=== PATIENT | female | born 1975 | race African-American/Black ===

== ENCOUNTER → 2018-01-03 07:59 | Outpatient (CLI) | payer BC, SELFPAY ==
--- NOTE | 2018-01-03 08:05 | US_ITS ---
US gallbladder HISTORY: Right upper quadrant pain with nausea and vomiting ITS.REASON: EPIGSTRIC PAIN ORDERING PHYSICIAN: Reed Rojas MD PATIENT AGE: 42 years FINDINGS: PANCREAS: Unremarkable. No obvious mass or abnormal fluid collection. No ductal dilatation LIVER: No focal liver lesions demonstrated. Homogeneous echogenicity. No intrahepatic biliary ductal dilatation evident. The nonspecific small hyperechoic focus in the right hepatic lobe anteriorly at 4 mm RIGHT KIDNEY: Normal size and echogenicity. No hydronephrosis. 1 cm hypoechoic area in the right kidney suggesting a small cyst GALLBLADDER: There are multiple stones in the gallbladder. Common bile duct is normal at 3 mm. No pericholecystic fluid or gallbladder wall thickening. IMPRESSION: 1. Cholelithiasis. 2. Small hyperechoic lesion of the liver nonspecific. 3. Probable small right renal cyst
== END ==
PROVIDERS: Family Provider Family Medicine; PCP Family Medicine; Visit Provider Family Medicine
DX: R10.13 Epigastric pain (principal)
CPT/HCPCS: 76705

== ENCOUNTER → 2018-01-11 10:29 | Outpatient (CLI) | payer BC, SELFPAY ==
[2018-01-11 11:06] LABS: Basophils # 0.1 K/mm3 (0-0.2); Basophils % 0.5 % (0.1-2.0); Eosinophils # 0.3 K/mm3 (0.0-0.4); Eosinophils % 3.3 % (0.1-12.0); Hematocrit 42.3 % (37.0-47.0); Hemoglobin 13.3 g/dL (12.2-16.2); Lymphocytes % 29.6 K/mm3 (10-50); Mean Corpuscular HGB Conc 31.4 g/dL (31.8-35.4); Mean Corpuscular Hemoglobin 27.4 pg (27.0-31.2); Mean Corpuscular Volume 87.5 fl (81-99); Monocytes # 0.4 K/mm3 (0.1-1.0); Monocytes % 3.9 % (1.7-9.3); Neutrophils # 6.4 K/mm3 (1.8-7.8); Neutrophils % 62.7 % (37.0-80.0); Platelet Count 384 K/mm3 (142-424); Red Blood Count 4.84 M/mm3 (4.20-5.40); Red Cell Distribution Width 15.1 % (11.5-17.5); White Blood Count 10.2 K/mm3 (4.8-10.8)
[2018-01-11 12:02] LABS: HCG Qualitative, Serum Negative (Negative)
[2018-01-11 12:05] LABS: Alanine Aminotransferase 32 U/L (12-78); Albumin Level 3.7 gm/dL (3.4-5.0); Albumin/Globulin Ratio 0.9 (1.1-1.8); Alkaline Phosphatase 98 U/L (46-116); Anion Gap 13.6 mEq/L (5-15); Aspartate Amino Transferase 22 U/L (15-37); Bilirubin,Total 0.4 mg/dL (0.2-1.0); Blood Urea Nitrogen 10 mg/dL (7-18); Calcium 9.2 mg/dL (8.5-10.1); Carbon Dioxide 27 mmol/L (21.0-32.0); Chloride 103 mmol/L (98-107); Creatinine,Serum 0.76 mg/dL (0.55-1.02); Estimated Glomerular Filt Rate 81 ml/min (>60); GFR (African American) 98 ML/MIN (>60); Globulin 4.3 gm/dl (1.3-3.2); Glucose 83 mg/dL (74-106); Potassium 4.6 mmoL/L (3.5-5.1); Sodium 139 mmol/L (136-145)
== END ==
PROVIDERS: Visit Provider Surgery
DX: Z01.818 Encounter for other preprocedural examination (principal); K80.12 Calculus of gallbladder with acute and chronic cholecystitis without obstruction
CPT/HCPCS: 36415; 80053; 84703; 85025

== ENCOUNTER → 2019-05-03 10:35 | Outpatient (CLI) | payer BC, SELFPAY ==
--- NOTE | 2019-05-03 10:38 | US_ITS ---
PROCEDURE: US TRANSVAGINAL CLINICAL INDICATION: US T/V- Abnormal Bleeding Heavy uterine bleeding, dysfunctional uterine bleeding COMPARISON: ABDPELW CT ABD PELVIS W/ CONTRAST from 07/30/2017 FINDINGS: The uterus is 12 x 7 x 7 cm with a combined endometrial thickness of 6 mm. The uterus is enlarged with heterogeneous echogenicity. There is a 6 x 4 cm fibroid along the anterior aspect of the uterine body. A 5 x 4 cm fibroid also noted anteriorly. Nabothian cysts are noted. No adnexal mass or cul-de-sac fluid. IMPRESSION: Enlarged uterus with uterine fibroids Dictated by: El Rico MD 05/03/2019 18:33 Signed by: <Electronically signed by El Rico MD in [place]> 05/03/2019 18:33
== END ==
PROVIDERS: PCP Family Medicine; Visit Provider Nurse Practitioner Obstetrics & Gynecology
DX: N92.6 Irregular menstruation, unspecified (principal)
CPT/HCPCS: 76830

== ENCOUNTER → 2019-05-17 09:41 | Outpatient (CLI) | payer BC, SELFPAY ==
[2019-05-17 09:58] LABS: Basophils # 0.1 K/mm3 (0-0.2); Basophils % 0.5 % (0.1-2.0); Eosinophils # 0.4 K/mm3 (0.0-0.4); Eosinophils % 3.9 % (0.1-12.0); Hematocrit 33.9 % (37.0-47.0); Hemoglobin 10.3 g/dL (12.2-16.2); Lymphocytes # 3.2 K/mm3 (0.7-4.5); Lymphocytes % 36.1 % (10-50); Mean Corpuscular HGB Conc 30.2 g/dL (31.8-35.4); Mean Corpuscular Hemoglobin 23.4 pg (27.0-31.2); Mean Corpuscular Volume 77.4 fl (81-99); Mean Platelet Volume 6.5 fl (7.4-10.4); Monocytes # 0.4 K/mm3 (0.1-1.0); Monocytes % 4.9 % (1.7-9.3); Neutrophils # 4.9 K/mm3 (1.8-7.8); Neutrophils % 54.6 % (37.0-80.0); Platelet Count 479 K/mm3 (142-424); Red Blood Count 4.38 M/mm3 (4.20-5.40); Red Cell Distribution Width 16.6 % (11.5-17.5)
[2019-05-17 11:27] LABS: Alanine Aminotransferase 20 U/L (12-78); Albumin Level 3.4 gm/dL (3.4-5.0); Albumin/Globulin Ratio 0.9 (1.1-1.8); Alkaline Phosphatase 68 U/L (46-116); Anion Gap 9.3 mEq/L (5-15); Aspartate Amino Transferase 17 U/L (15-37); Bilirubin,Total 0.3 mg/dL (0.2-1.0); Blood Urea Nitrogen 10 mg/dL (7-18); Calcium 8.9 mg/dL (8.5-10.1); Carbon Dioxide 29 mmol/L (21.0-32.0); Chloride 103 mmol/L (98-107); Chol/HDL Ratio 2.5 (1-3.5); Cholesterol 162 mg/dL (140-200); Creatinine,Serum 0.86 mg/dL (0.55-1.02); Estimated Glomerular Filt Rate 72 ml/min (>60); GFR (African American) 87 ML/MIN (>60); Globulin 3.8 gm/dl (1.3-3.2); Glucose 78 mg/dL (74-106); HDL Cholesterol 65 mg/dL (29-89); LDL Cholesterol 85 mg/dL (0-130); Potassium 4.3 mmoL/L (3.5-5.1); Sodium 137 mmol/L (136-145); Total Protein,Serum 7.2 gm/dL (6.4-8.2); Triglycerides 62 mg/dL (30-200); VLDL Cholesterol 12 mg/dL (0-40)
== END ==
PROVIDERS: Visit Provider Nurse Practitioner Obstetrics & Gynecology
DX: Z01.818 Encounter for other preprocedural examination (principal); N93.9 Abnormal uterine and vaginal bleeding, unspecified; D25.1 Intramural leiomyoma of uterus; N92.1 Excessive and frequent menstruation with irregular cycle
CPT/HCPCS: 36415; 80053; 80061; 85025

== ENCOUNTER 2019-06-15 06:04 | Inpatient (IN) ==
--- NOTE | 2019-06-15 09:53 | Operative Note ---
Date of procedure: 06/15/19 Pre-op Diagnosis:: Menorrhagia, fibroid uterus, anemia Post-op Diagnosis:: Menorrhagia, fibroid uterus, anemia Procedure performed:: Diagnostic laparoscopy, conversion to midline laparotomy, total abdominal hysterectomy, bilateral salpingectomy, lysis of adhesions Surgeon:: Todd Allan MD Clerical Order Filler(s):: Leah Guy PRESIDING JUDGE:: Benny Montanez Anesthesia: GETA Estimated blood loss (mL): 500 Clinical Note:: She is a 43-year-old 2 para 2 lady who was known to have a fibroid uterus. She had an ultrasound that showed a 6 x 4 cm and a 5 x 5 cm fibroid. She is had 2 previous sections as well as laparoscopic cholecystectomy. She was anemic as a result of her heavy periods. After having discussed the risks and benefits of surgery we elected to perform a laparoscopically assisted vaginal hysterectomy and bilateral salpingectomy. Unfortunately once we went into the abdominal cavity is noted that there were extensive adhesions of the uterus to the anterior abdominal wall as well as bowel adhesions to the anterior abdominal wall. As a result of this we elected to perform a midline laparotomy with total abdominal hysterectomy and bilateral salpingectomy. Operative findings:: Upon entering the abdominal cavity with the laparoscope was noted that there was extensive adhesions from the uterus to the anterior abdominal wall and to the anterior bladder. There were adhesions of bowel into the deep left pelvis. The uterus was also pulled up superiorly and was almost to the umbilicus. As result of this we elected perform a total abdominal hysterectomy and bilateral salpingectomy through a midline incision. Operative note:: She was taken the operating room where general anesthesia was found be adequate. She was prepped and draped in a sterile fashion in the semilithotomy position. A weighted speculum is placed in vagina and the anterior lip of the cervix was grasped with a tenaculum. I dilated the cervix to approximately 4 mm and then inserted a HUMI uterine lip later into the uterine cavity. I then changed gloves and went to the laparoscopic portion of the surgery. I injected 10 cc of 0.5% ropivacaine around the umbilicus and made a small incision within the umbilicus. Inserted a Veress needle into the abdominal cavity and insufflated the abdominal cavity to a pressure of 20 mm of mercury. I then inserted an 11 mm trocar under direct vision. The findings were as previously dictated. Since there was such extensive adhesions and the uterus is almost to the umbilicus I elected to perform a midline laparotomy. Patient was reprepped and draped in the normal sterile fashion in the supine po sition. Olmos catheter is in the bladder. A midline incision was made with knife and carried through to the underlying layer of fascia with cautery. The fascia was opened midline with cautery and extended superiorly and inferiorly with cautery. She was quite short from her pubic bone to the umbilicus so I extended the incision just slightly superiorly to the umbilicus and had joined up with the inferior umbilical incision from the laparoscopy. The fascia was extended superiorly and inferiorly and the peritoneum was was already opened where the trocar was located. I was able to put my finger through here and open up the peritoneum from the suprapubic area to the umbilical area. The bowel was clear. There were a couple of adhesions of omentum and I was able to take these down with cautery. An O'Gunnar-O'Edwards retractor was then placed within the abdominal cavity and the bowel was packed with warm moist packs. The bladder was quite adherent anteriorly to the uterus. It was quite enlarged. There were at least 2 fibroids as previously seen on ultrasound that measured approximately 6 cm and 5 cm. I grasped the left round ligament and cut across this with scissors. I then suture-ligated this. I then doubly clamped across the utero-ovarian ligament and this was then cut and doubly suture-ligated. I then clamped across the uterine arteries at the level of the internal loss with curved Kelvin and cut and suture-ligated here. I then opened up the bladder flap completely across to the other round ligament. I then dissected the bladder down with both sharp and blunt dissection. I then took 2 bites of the cardinal ligament on the left side using straight. This was suture-ligated as I went. We then turned our attention to the opposite side. I grasped the right round ligament with a Lillie and then cut across this. It was suture-ligated. I then doubly clamped the utero-ovarian ligament and this was cut and doubly suture- ligated. I then further opened up the bladder anteriorly with both sharp and blunt dissection. Using straight Kelvin clamps I then took down the cardinal ligament on the right side in a [id number] fashion clamping cutting and suture ligating as I went. This was followed by the uterosacral ligament on the right side which was clamped cut and suture-ligated. I then turned my attention to the left side once again I took down the uterosacral ligament which was clamped cut and suture-ligated. This freed up the cervix at the level of the vaginal vault. The cervix was actually quite long. I then clamped across the vaginal vault using curved Kelvin clamps and cut away the cervix from the top of the vagina. The corners of the vagina were then closed with interrupted [id number] Vicryl suture. These were tagged. I then closed the vaginal vault using running lock suture. I then removed her tubes by clamping across the mesosalpinx and cutting away the tube. This was then suture-ligated. This was similar performed on the opposite side. The pedicle of the ovary was then tied to the pedicle of the round ligament on each side. The pelvis then rinsed and once again hemostasis was assured. I elected to place 2 large pieces of Surgicel into the pelvis. The peritoneum was then grasped and closed using running 2-0 Vicryl suture. The fascia was then closed using running #2 Novafil suture. The subcutaneous tissues were then irrigated with warm water and closed using running 2-0 Monocryl suture. The skin was closed with luis. The skin was then cleaned with Hibiclens and a sterile dressing applied. She tolerated procedure well and was taken to recovery room in excellent condition. All sponge, instrument and needle counts were correct. The estimate of blood loss was approximately 500 cc. Condition: stable Disposition: PACU Specimens:: Uterus and fallopian tubes Complications:: None
--- NOTE | 2019-06-15 10:02 | Progress Note ---
[facility] Anesthesia Checklist - Structural Data Admitted From: Home Planned Operative Procedure/s: [facility] Consent for Planned Operative Procedure(s) Verified: Yes - Additional verifications Anesthesia Reactions: No Hx Blood Transfusions: Yes (07/26/1994 x2 units post csetion hemorrhage) Blood Transfusion Reaction: No - Airway Assessment C-Spine Mobility Assessed: Yes TMJ Mobility Assessed: Yes Dentition: Good Dentition - Neurological Assessment Level of Consciousness: Awake, Alert, Appropriate - Anesthesia Plan Anesthesia Risk discussed: Yes Anesthesia Plan: Verified ASA Class: II Anesthesia Type: General [facility] History I have reviewed the patient's past medical history: Yes Medical History: Reports:: Asthma Denies:: Cancer, Diabetes Mellitus Type 1, Diabetes Mellitus Type 2, Internal Pacemaker, MRSA, Seizures *Have you ever received a pneumonia vaccine?: No *Have you received a flu vaccine this season?: No Other Medical History: Denies: Blood Transfusion Reaction Anesthesia experience/problems:: none Other Surgeries: Yes: Cholecystectomy, , Dilation and Curettage, Tubal Ligation, Other (gallbladder). No: Pacemaker Amputation: No Fractures: No - *Social History Educational Level: Attended College Smoking Status: Never smoker Alcohol Intake: current Alcohol Intake Frequency:: holidays/special occasions only Substance Use Type: denies use *Occupational Status:: employed Housing: house Household Members: children, significant other *Travel in the last 8 weeks: None Family Hx:: No significant family history
--- NOTE | 2019-06-15 10:03 | Progress Note ---
[facility] Anesthesia Record Part I Intake, IV Amount: 2,000 Estimated blood loss (mL): 500 Urine output (mL): 350 Blood Pressure: 112/70 SaO2: 100 Pulse Rate: 76 Respiratory Rate: 12 Temperature: 97.4 F Patient is:: Awake, Stable Stable to PACU at:: 10:00
--- NOTE | 2019-06-15 10:04 | Progress Note ---
[facility] Anesthesia Record Part II Discharge Time: 10:30 Destination: floor PACU nurse assessment reviewed?: Yes Patient Condition:: Good Anesthesia Complications:: None Swallowing reflex intact?: Yes Cyanosis?: No
--- NOTE | 2019-06-15 15:05 | Pharmacy Consult Notes ---
[facility] Pharmacy VTE Monitoring - Patient Demographics Admission date: 06/15/19 Report Date: 06/15/19 Time: 15:05 Allergies/Adverse Reactions: Patient Allergies No Known Allergies Allergy (Verified 05/17/19 08:45) Height: 1.55 m Weight: 77.564 kg - VTE Risk Was VTE Risk Assessment Performed: Yes VTE Score: 3 VTE Risk Level: Low Risk - Prophylaxis VTE Prophylaxis Ordered?: Yes Types of VTE Prophylaxis: IPCS Thigh High, Pharmacological Location of Applied Device: Bilateral Lower Extremeties Pharmacologic Type: Enoxaparin
[2019-06-15 16:13] LABS: Hematocrit 27.9 % (37.0-47.0); Hemoglobin 8.2 g/dL (12.2-16.2)
[2019-06-16 07:28] LABS: Anion Gap 11.3 mEq/L (5-15); Calcium 8.2 mg/dL (8.5-10.1)
[2019-06-16 07:39] LABS: Basophils % 0.2 % (0.1-2.0); Eosinophils % 0.1 % (0.1-12.0); Lymphocytes # 2.3 K/mm3 (0.7-4.5); Lymphocytes % 15.8 % (10-50); Mean Corpuscular HGB Conc 28.4 g/dL (31.8-35.4); Mean Corpuscular Volume 77.7 fl (81-99); Mean Platelet Volume 7.4 fl (7.4-10.4); Monocytes % 6.6 % (1.7-9.3); Neutrophils # 11.1 K/mm3 (1.8-7.8); Neutrophils % 77.3 % (37.0-80.0); Platelet Count 375 K/mm3 (142-424); Red Blood Count 2.97 M/mm3 (4.20-5.40); Red Cell Distribution Width 17.6 % (11.5-17.5); White Blood Count 14.4 K/mm3 (4.8-10.8)
[2019-06-16 07:42] LABS: Hematocrit 23.1 % (37.0-47.0); Hemoglobin 6.6 g/dL (12.2-16.2)
--- NOTE | 2019-06-16 11:28 | Progress Note ---
Internal Medicine - PN: Subj *Date: 06/16/19 *Time: 11:24 Interval history: She is doing well this morning. She had dropped her hemoglobin by yesterday afternoon to 8.3. This morning was 6.3. As result of that we are transfusing HER-2 units of blood. Her hemoglobin was only 10.3 prior to surgery. She has had anemia in the past. She denies any shortness of breath, chest pain or calf tenderness. She denies any nausea. She has passed some gas. Exam Vital signs and Labs for Last 24 Hours: Temp Pulse Resp BP Pulse Ox 98.5 F 93 H 20 128/67 97 06/16/19 10:55 06/16/19 10:55 06/16/19 10:55 06/16/19 10:55 06/16/19 10:55 Laboratory Results - last 24 hr 06/15/19 08:05: Urine Color Yellow, Urine Appearance Clear, Urine pH 7.0, Ur Specific [place] 1.020, Urine Protein Trace, Urine Glucose (UA) Negative, Urine Ketones Negative, Urine Blood Negative, Urine Nitrate Negative, Urine Bilirubin Negative, Urine Urobilinogen 0.2, Ur Leukocyte Esterase Negative, Urine WBC Occasional, Ur Squamous Epith Cells 3-5, Urine Bacteria Trace 06/15/19 16:00: Hgb 8.2 L, Hct 27.9 L 06/16/19 06:27: WBC 14.4 H, RBC 2.97 L, Hgb 6.6 L*, Hct 23.1 L*, MCV 77.7 L, MCH 22.1 L, MCHC 28.4 L, RDW 17.6 H, Plt Count 375, MPV 7.4, Neut % (Auto) 77.3, Lymph % (Auto) 15.8, [place] % (Auto) 6.6, Eos % (Auto) 0.1, Baso % (Auto) 0.2, Neut # (Auto) 11.1 H, Lymph # (Auto) 2.3, [place] # (Auto) 1.0, Eos # (Auto) 0.0, Baso # (Auto) 0.0 06/16/19 06:27: Sodium 136, Potassium 4.3, Chloride 103, Carbon Dioxide 26, Anion Gap 11.3, BUN 10, Creatinine 0.94, Estimated Creat Clear 94, Estimated GFR 65, Est GFR ( Amer) 78, Glucose 113 H, Calcium 8.2 L 06/16/19 06:37: Blood Type Confirm O Positive 06/16/19 08:30: Blood Type O Positive, Antibody Screen Negative, Crossmatch (AHG) See Detail I & O for Last 24 hours: Intake & Output 06/13/19 06/14/19 06/15/19 06/16/19 11:59 11:59 11:59 11:59 Intake Total 1999 2465 / 2465 Output Total 900 / 900 Balance 1999 1565 / 1565 Weight 171 lb - Constitutional no acute distress - *Routine HEENT Exam Head: Present: normocephalic Eye: Present: EOMI, PERRL ENT: Present: mucous membranes moist - *Routine Neck Exam Present: supple, full ROM - *Routine Respiratory Exam Absent: accessory muscle use (good air entry bilaterally), wheezes, crackles Comments: She has good air entry bilaterally - *Routine Cardiovascular Exam Present: RRR. Absent: murmur - *Routine Abdominal Exam Present: soft, normoactive bowel sounds. Absent: tenderness, rebound, guarding, mass Comments: Her incision is clean and dry. 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 She is getting 2 units of blood this morning. We will plan to send her home in 48 hours. We will increase her diet. Her Olmos catheter is out.
--- NOTE | 2019-06-16 13:20 | Pharmacy Consult Notes ---
[facility] Pharmacy VTE Monitoring - Patient Demographics Admission date: 06/16/19 Report Date: 06/16/19 Time: 13:19 Allergies/Adverse Reactions: Patient Allergies No Known Allergies Allergy (Verified 05/17/19 08:45) Height: 1.55 m Weight: 77.564 kg Patient Problems: Current Active Problems (This Medical Record has been edited. Action required.) Uterine fibroid (Acute) Anemia due to chronic blood loss (Acute) Menorrhagia (Acute) - VTE Risk Labs: VTE Related Lab Results Hgb 6.6 g/dL (12.2-16.2) L* 06/16/19 06:27 Hct 23.1 % (37.0-47.0) L* 06/16/19 06:27 Plt Count 375 K/mm3 (142-424) 06/16/19 06:27 BUN 10 mg/dL (7-18) 06/16/19 06:27 Creatinine 0.94 mg/dL (0.55-1.02) 06/16/19 06:27 Estimated Creat Clear 94 mL/min (50-200) 06/16/19 06:27 Was VTE Risk Assessment Performed: Yes VTE Score: 3 VTE Risk Level: Low Risk - Prophylaxis Types of VTE Prophylaxis: Pharmacological Location of Applied Device: Bilateral Lower Extremeties Pharmacologic Type: Enoxaparin (LOVENOX ADDED)
[2019-06-16 14:59] LABS: Hematocrit 29.9 % (37.0-47.0)
[2019-06-16 15:03] LABS: Hemoglobin 9.1 g/dL (12.2-16.2)
[2019-06-17 07:51] LABS: Basophils % 0.2 % (0.1-2.0); Eosinophils % 0.1 % (0.1-12.0); Hematocrit 24.9 % (37.0-47.0); Lymphocytes # 2.4 K/mm3 (0.7-4.5); Lymphocytes % 15.6 % (10-50); Mean Corpuscular HGB Conc 30.7 g/dL (31.8-35.4); Mean Corpuscular Volume 81.9 fl (81-99); Mean Platelet Volume 7.3 fl (7.4-10.4); Monocytes # 0.6 K/mm3 (0.1-1.0); Monocytes % 4.1 % (1.7-9.3); Neutrophils # 12.3 K/mm3 (1.8-7.8); Neutrophils % 79.9 % (37.0-80.0); Platelet Count 280 K/mm3 (142-424); Red Blood Count 3.03 M/mm3 (4.20-5.40); Red Cell Distribution Width 18.9 % (11.5-17.5); White Blood Count 15.4 K/mm3 (4.8-10.8)
[2019-06-17 08:56] LABS: Hemoglobin 7.6 g/dL (12.2-16.2)
--- NOTE | 2019-06-17 13:48 | Progress Note ---
Internal Medicine - PN: Subj *Date: 06/17/19 *Time: 13:44 Interval history: She is doing well today. Her hemoglobin has dropped to 7.6. She received 2 units yesterday. We will plan to repeat her hemoglobin again tomorrow morning. She denies any chest pain, shortness of breath or calf tenderness. She is passing gas. She is eating and drinking. Exam Vital signs and Labs for Last 24 Hours: Temp Pulse Resp BP Pulse Ox 98.5 F 97 H 20 118/67 98 06/17/19 08:30 06/17/19 08:30 06/17/19 08:30 06/17/19 08:30 06/17/19 08:30 Laboratory Results - last 24 hr 06/16/19 08:30: Crossmatch (AHG) See Detail 06/16/19 14:35: Hgb 9.1 L D, Hct 29.9 L 06/17/19 07:00: WBC 15.4 H, RBC 3.03 L, Hgb 7.6 L*, Hct 24.9 L, MCV 81.9, MCH 25.2 L, MCHC 30.7 L, RDW 18.9 H, Plt Count 280 D, MPV 7.3 L, Neut % (Auto) 79.9, Lymph % (Auto) 15.6, [place] % (Auto) 4.1, Eos % (Auto) 0.1, Baso % (Auto) 0.2, Neut # (Auto) 12.3 H, Lymph # (Auto) 2.4, [place] # (Auto) 0.6, Eos # (Auto) 0.0, Baso # (Auto) 0.0 I & O for Last 24 hours: Intake & Output 06/15/19 06/16/19 06/17/19 06/18/19 11:59 11:59 11:59 11:59 Intake Total 1999 2465 / 2465 1553 / 1553 Output Total 900 / 900 1000 / 1000 Balance 1999 1565 / 1565 553 / 553 - Constitutional no acute distress - *Routine HEENT Exam Head: Present: normocephalic Eye: Present: EOMI, PERRL ENT: Present: mucous membranes moist - *Routine Neck Exam Present: supple, full ROM - *Routine Respiratory Exam Absent: accessory muscle use (good air entry bilaterally), wheezes, crackles - *Routine Cardiovascular Exam Present: RRR. Absent: murmur - *Routine Abdominal Exam Present: soft, normoactive bowel sounds. Absent: tenderness, rebound, guarding, mass Assessment and Plan (1) Uterine fibroid Current visit: Yes Status: Acute Category: Medical Code(s): D25.9 - Leiomyoma of uterus, unspecified (2) Anemia due to chronic blood loss Current visit: Yes Status: Acute Category: Medical Code(s): D50.0 - Iron deficiency anemia secondary to blood loss (chronic) (3) Menorrhagia Current visit: Yes Status: Acute Category: Medical Code(s): N92.0 - Excessive and frequent menstruation with regular cycle - Assessment and plan all Dx Assessment and Plan for all problems:: She is doing well this morning. Her hemoglobin has gone down slightly and we will repeat again tomorrow. If necessary we will give her more blood products. We will plan to send her home tomorrow but if she is not quite ready we will keep her another day. She really just started eating today. She is ambulating and she has had a shower. She has a slight cough and I have encouraged her to continue with her set of spirometry. She will take a cough syrup as necessary. Her pain is well controlled.
[2019-06-17 13:49] LABS: Lymphocytes % 15 % (10-50); Monocytes % 5 % (2-9); Neutrophils % 80 % (42-76); Total Cells Counted 100
[2019-06-18 07:24] LABS: Hematocrit 24.3 % (37.0-47.0)
[2019-06-18 07:37] LABS: Hemoglobin 7.5 g/dL (12.2-16.2)
--- NOTE | 2019-06-18 08:28 | Discharge Summary ---
General - General Admission date:: 06/15/19 Discharge date: 06/18/19 HPI HPI: She is a 43-year-old lady who has a fibroid uterus as well as menorrhagia and anemia. She came in on June 15 for a laparoscopic-assisted vaginal hysterectomy but unfortunately extensive adhesions of the uterus and the uterus itself was quite enlarged. We elected to perform a laparotomy and performed a total abdominal hysterectomy and bilateral salpingectomy. Hospital Course Hospital Course: On June 15 she underwent a laparotomy through a midline incision and we performed a total abdominal hysterectomy and bilateral salpingectomy. She has done well postoperatively and has remained afebrile throughout her hospitalization. She is eating and drinking and ambulating. She has had a bowel movement. Her pain is well controlled with Toradol. She does not want to take any narcotics. On her first postoperative day it was noted that her hemoglobin was slightly low so we elected to transfuse her 2 units of blood. Her hemoglobin is now 7.5 and it has been stabilized for the last 24 hours. She is discharged home to follow-up with me in approximately 2 weeks time. She will continue with her home medications. She was given a prescription for Percocet 5/325 number 20 tablets. She will continue with ibuprofen. She was given the usual instructions with respect to limiting her activity, driving and sexual activity. She will also take a One-A-Day vitamin with iron as well as an extra iron tablet to build up her blood counts. Her condition on discharge is stable and improved. Objective Vital signs: Temp Pulse Resp BP Pulse Ox 98.3 F 83 20 122/75 98 06/18/19 04:26 06/18/19 04:26 06/18/19 04:26 06/18/19 04:06/18/19 08:09 no acute distress - *Routine HEENT Exam Head: Present: normocephalic - *Routine Respiratory Exam Absent: accessory muscle use Comments: She has good air entry bilaterally - *Routine Cardiovascular Exam Present: RRR - *Routine Abdominal Exam Present: soft, normoactive bowel sounds, wound Comments: Incision is clean and dry - *Routine Extremities Exam Present: full ROM Comments: She has no calf tenderness Results Labs on day of discharge: Labs from last 24 hours 06/18/19 06/17/19 06:58 07:00 WBC 15.4 H RBC 3.03 L Hgb 7.5 L* 7.6 L* Hct 24.3 L 24.9 L MCV 81.9 MCH 25.2 L MCHC 30.7 L RDW 18.9 H Plt Count 280 D MPV 7.3 L Neut % (Auto) 79.9 Lymph % (Auto) 15.6 [place] % (Auto) 4.1 Eos % (Auto) 0.1 Baso % (Auto) 0.2 Neut # (Auto) 12.3 H Lymph # (Auto) 2.4 [place] # (Auto) 0.6 Eos # (Auto) 0.0 Baso # (Auto) 0.0 Total Counted 100 Neutrophils % (Manual) 80 H Lymphocytes % (Manual) 15 Monocytes % (Manual) 5 Platelet Estimate Normal DS: Diagnosis - Discharge Diagnosis (1) Uterine fibroid Status: Acute (2) Anemia due to chronic blood loss Status: Acute (3) Menorrhagia Status: Acute Discharge Plan - Patient Discharge Instructions ACTIVITY: No heavy lifting DIET: continue same diet - Follow up Plan Disposition: Home, Self-Usp Medications: Home Medications Medication Instructions Recorded Confirmed Type budesonide-formoterol HFA 80 2 puff INHALATION DAILY 01/11/18 06/16/19 History mcg-4.5 mcg/actuation aerosol inhaler albuterol sulfate HFA 90 1 inhalation INHALATION DAILY #18 g 04/26/19 06/15/19 History mcg/actuation aerosol inhaler Oxycodone HCl/Acetaminophen 1 - 2 tab PO Q4-6H PRN #20 tab 06/18/19 Rx [Percocet 5/325mg tablet] Prescriptions/Medication Reconciliation: New Oxycodone HCl/Acetaminophen [Percocet 5/325mg tablet] 1 - 2 tab PO Q4-6H PRN #20 tab PRN Reason: Severe Pain Continued albuterol sulfate HFA 90 mcg/actuation aerosol inhaler 1 inhalation INHALATION DAILY #18 g budesonide-formoterol HFA 80 mcg-4.5 mcg/actuation aerosol inhaler 2 puff INHALATION DAILY - Problem Reconciliation Problems Reviewed?: Yes
== END 2019-06-18 09:40 | disposition home or self-care (01) | DRG 743 ==
LOC: OR 06:04 → OB 10:40
PROVIDERS: ADMIT Nurse Practitioner Obstetrics & Gynecology; ATTEND Nurse Practitioner Obstetrics & Gynecology
CPT/HCPCS: 36415; 80048; 81001; 81025; 85007; 85014; 85018; 85025; 86850; 96372; 96374; J0131; J2405; J2710; P9016

== ENCOUNTER → 2019-06-27 11:26 | Outpatient (CLI) | payer BC, SELFPAY ==
[2019-06-27 11:37] LABS: Basophils # 0.1 K/mm3 (0-0.2); Basophils % 0.4 % (0.1-2.0); Eosinophils # 0.4 K/mm3 (0.0-0.4); Eosinophils % 1.3 % (0.1-12.0); Hematocrit 31.9 % (37.0-47.0); Hemoglobin 9.2 g/dL (12.2-16.2); Lymphocytes # 3.3 K/mm3 (0.7-4.5); Lymphocytes % 10.7 % (10-50); Mean Corpuscular HGB Conc 28.9 g/dL (31.8-35.4); Mean Corpuscular Hemoglobin 24.2 pg (27.0-31.2); Mean Corpuscular Volume 83.8 fl (81-99); Mean Platelet Volume 7.1 fl (7.4-10.4); Monocytes # 1.4 K/mm3 (0.1-1.0); Monocytes % 4.6 % (1.7-9.3); Neutrophils # 25.3 K/mm3 (1.8-7.8); Neutrophils % 82.9 % (37.0-80.0); Platelet Count 966 K/mm3 (142-424); Red Blood Count 3.81 M/mm3 (4.20-5.40); Red Cell Distribution Width 20.4 % (11.5-17.5); White Blood Count 30.5 K/mm3 (4.8-10.8)
[2019-06-27 11:43] LABS: MANUAL DIFFERENTIAL MANUAL DIFFERENTIAL (MANUAL DIFF)
[2019-06-27 15:08] LABS: Lymphocytes % 24 % (10-50); Monocytes % 1 % (2-9); Neutrophils % 75 % (42-76); Total Cells Counted 100
[2019-06-27 15:09] LABS: Burr Cells 1+; Hypochromasia 1+
[2019-06-27 15:10] LABS: Platelet Estimate Marked Increase
[2019-06-29 18:07] LABS: Peripheral Smear Review Scanned Result
== END ==
PROVIDERS: Visit Provider Nurse Practitioner Obstetrics & Gynecology
DX: Z48.89 Encounter for other specified surgical aftercare (principal); D72.829 Elevated white blood cell count, unspecified
CPT/HCPCS: 36415; 85007; 85025

== ENCOUNTER → 2019-06-28 13:51 | Outpatient (CLI) | payer BC, SELFPAY ==
[2019-06-28 14:19] LABS: Basophils # 0.1 K/mm3 (0-0.2); Basophils % 0.5 % (0.1-2.0); Eosinophils # 0.2 K/mm3 (0.0-0.4); Eosinophils % 0.9 % (0.1-12.0); Hematocrit 32.1 % (37.0-47.0); Hemoglobin 9.3 g/dL (12.2-16.2); Lymphocytes # 3.7 K/mm3 (0.7-4.5); Lymphocytes % 16.9 % (10-50); Mean Corpuscular HGB Conc 28.9 g/dL (31.8-35.4); Monocytes # 0.9 K/mm3 (0.1-1.0); Neutrophils # 16.8 K/mm3 (1.8-7.8); Neutrophils % 77.6 % (37.0-80.0); Red Blood Count 3.87 M/mm3 (4.20-5.40); Red Cell Distribution Width 20.5 % (11.5-17.5); White Blood Count 21.6 K/mm3 (4.8-10.8)
[2019-06-28 14:53] LABS: Platelet Count 1030 K/mm3 (142-424)
[2019-06-28 14:54] LABS: MANUAL DIFFERENTIAL MANUAL DIFFERENTIAL (MANUAL DIFF)
[2019-06-28 15:08] LABS: Eosinophils % 2 % (0-3); Lymphocytes % 17 % (10-50); Monocytes % 6 % (2-9); Neutrophils % 75 % (42-76); Total Cells Counted 100
[2019-06-28 15:09] LABS: Platelet Estimate Marked Increase
[2019-06-28 15:10] LABS: Hypochromasia 1+
== END ==
PROVIDERS: Visit Provider Nurse Practitioner Obstetrics & Gynecology
DX: D72.829 Elevated white blood cell count, unspecified (principal)
CPT/HCPCS: 36415; 85007; 85025

== ENCOUNTER → 2019-10-22 09:52 | Outpatient (CLI) | payer BC, SELFPAY ==
--- NOTE | 2019-10-22 09:52 | US_ITS ---
PROCEDURE: US TRANSVAGINAL CLINICAL INDICATION: US T/V- LLQP Left lower quadrant pain COMPARISON: No exams were available for comparison FINDINGS: There has been a hysterectomy. The vaginal cuff has an unremarkable appearance. The left ovary is 3 x 2 cm containing 2 small follicular cysts measuring up to 1 cm. The right ovary is 3.5 x 1.4 cm containing a small follicle. No cul-de-sac fluid evident. There is bilateral ovarian blood flow. No cul-de-sac fluid apparent. IMPRESSION: Prior hysterectomy otherwise negative pelvic ultrasound Dictated by: El Rico MD 10/22/2019 17:32 Electronically signed by El Rico MD in [place] 10/22/2019 17:32
== END ==
PROVIDERS: PCP Family Medicine; Visit Provider Nurse Practitioner Obstetrics & Gynecology
DX: R10.32 Left lower quadrant pain (principal)
CPT/HCPCS: 76830

== ENCOUNTER 2020-09-05 15:06 | Emergency (ER) | payer BC, SELFPAY ==
[2020-09-05 15:15] VITALS: BP 127/70; PULSE 78; RESP 20; TEMP 36.8; O2SAT 98; BMI 28.9
--- NOTE | 2020-09-05 15:25 | ED_ITS ---
[facility] [place] Disposition Clinical Impression: Wheezing Disposition: Home, Self-Care Condition on Discharge: Good Instructions: Preventing the Spread of Coronavirus Discharge Instructions Referrals: Reed Rojas MD [Primary Care Provider] - Time of Disposition: 15:30 Medical Decision Making - Oni Inquiry Pt receiving controlled substance: No [facility] [place] HPI - General Stated complaint: covid test Time Seen by Provider: 09/05/20 15:25 - History of Present Illness Provider Complaint: 44 year old female with wheezing - has history of asthma. Using Symbicort and rescue inhaler. Called into work and they requested COVID19 testing. Onset (ago): day(s) (1) Location: chest Relieving factors: none Exacerbating factors: none Associated symptoms: denies other symptoms Treatments prior to arrival: none - Related Data Home Medications Medication Instructions Recorded Confirmed budesonide-formoterol HFA 80 2 puff INHALATION DAILY 01/11/18 10/04/19 mcg-4.5 mcg/actuation aerosol inhaler albuterol sulfate 90 mcg/actuation 1 inh INHALATION DAILY #18 g 04/26/19 10/04/19 aerosol inhaler Previous Rx's Medication Instructions Recorded Albuterol Sulfate [Albuterol HFA 1 - 2 puffs IH Q4-6H PRN 30 Days 10/29/19 Inhaler] #1 inh Azithromycin [Z-Nader 250mg Tab*] 250 mg PO UD DOSE PK #6 tab 10/29/19 Oseltamivir Phosphate [Tamiflu 75 mg PO BID #10 cap 10/29/19 75mg Capsule] predniSONE [Prednisone 20mg 20 mg PO BID 5 Days #10 tab 10/29/19 Tab] Allergies Allergy/AdvReac Type Severity Reaction Status Date / Time No Known Allergies Allergy Verified 10/04/19 08:58 [facility] History - Hepatitis A Screen Attestation statement:: This patient has been screened for Hepatitis A risk factors. I have reviewed the patient's past medical history: Yes Medical History: Reports:: Asthma Denies:: Cancer, Diabetes Mellitus Type 1, Diabetes Mellitus Type 2, Internal Pacemaker, MRSA, Seizures Other Medical History: Denies: Blood Transfusion Reaction Other Surgeries: Yes: Cholecystectomy, , Dilation and Curettage, Hysterectomy-Total, Tubal Ligation, Other (gallbladder). No: Pacemaker Amputation: No Fractures: No Comment: rectocel. BRYANT BSO - Social History Smoking Status: Never smoker Alcohol Intake: never Alcohol Intake Frequency:: holidays/special occasions only Substance Use Type: denies use Occupational Status: other Housing: house Household Members: children, significant other Family Hx:: No significant family history ROS Obtained: Yes All systems reviewed & no additional complaints - Respiratory Respiratory: Yes wheezing Physical Exam - General General appearance: alert, in no apparent distress - Head Head exam: normocephalic - Eye Eye exam: Present: PERRL - ENT ENT exam: Present: normal oropharynx - Chest Chest inspection: Present: symmetric chest wall rise - Respiratory Respiratory exam: Present: normal lung sounds bilaterally - Cardiovascular Cardiovascular exam: Present: regular rate, normal rhythm - Neurological Exam Neurological exam: Present: alert, oriented X3 - Psychiatric Psychiatric exam: Present: normal affect, normal mood - Skin Skin ex
[2020-09-05 15:32] VITALS: BP 127/70; PULSE 78; RESP 20; TEMP 36.8; O2SAT 98
[2020-09-07 08:28] LABS: Covid-19 Nasal PCR Sendout UK Not Detected
== END 2020-09-05 15:36 | disposition home or self-care (01) ==
PROVIDERS: Physician Assistant; Emergency Provider Nurse Practitioner; PCP Family Medicine
DX: Z20.828 Contact with and (suspected) exposure to other viral communicable diseases (principal); J45.909 Unspecified asthma, uncomplicated
CPT/HCPCS: 99201; U0003

== ENCOUNTER 2020-10-17 14:58 | Emergency (ER) | payer BC, SELFPAY ==
[2020-10-17 15:00] VITALS: BP 147/81; PULSE 69; RESP 17; TEMP 36.7; O2SAT 98; BMI 23.6
--- NOTE | 2020-10-17 15:42 | HMH.EDUTC ---
[facility] [place] Impression: Exposure to COVID-19 virus Disposition: Home, Self-Care Condition on Discharge: Good Instructions: DI for COVID-19 (Suspected or Confirmed ), Preventing the Spread of Coronavirus Discharge Instructions Additional Instructions: Drink plenty of fluids. Take tylenol for pain or fever. Return if you begin to have difficulty breathing. Follow up with your regular doctor. GO TO THE ER FOR ANY WORSENING SYMPTOMS Referrals: Reed Rojas MD [Primary Care Provider] - Time of Disposition: 15:51 Medical Decision Making - Medical Records Medical records reviewed: No: I reviewed the patient's medical records. - Oni Inquiry Pt receiving controlled substance: No Vital Signs: 10/17/20 15:00 10/17/20 15:56 Temperature 98.0 F 98.0 F Temperature Source Temporal Artery Scan Pulse Rate 69 Pulse Rate [Right Brachial] 69 Respiratory Rate 17 17 Blood Pressure 147/81 H Blood Pressure [Right Arm] 147/81 H Blood Pressure Mean [Right Arm] 103 Blood Pressure Source [Right Arm] Automatic Cuff Blood Pressure Position [Right Arm] Sitting 02 Sat by Pulse Oximetry 98 Oxygen Delivery Method Room Air [facility] [place] - General Stated complaint: covid test Time Seen by Provider: 10/17/20 15:49 Mode of Arrival: Ambulatory Source of Information: Patient Limitations: No Limitations Description of Symptoms (Recalled from Triage Doc. by RN): PATIENT REQUESTING COVID TEST D/T UPCOMING TRAVEL. DENIES EXPOSURE OR SYMPTOMS. HEENT Symptoms (Recalled from RN notes): No Resp Symptoms (Recalled from RN notes): No Skin Symptoms (Recalled from RN notes): No MS Symptoms (Recalled from RN notes): No Functional Status (Recalled from RN notes): WNL - History of Present Illness Provider Complaint: She needs a covid test because she is going to be traveling. She denies any symptoms. - Related Data Home Medications Medication Instructions Recorded Confirmed budesonide-formoterol HFA 80 2 puff INHALATION DAILY 01/11/18 10/04/19 mcg-4.5 mcg/actuation aerosol inhaler albuterol sulfate 90 mcg/actuation 1 inh INHALATION DAILY #18 g 04/26/19 10/04/19 aerosol inhaler Previous Rx's Medication Instructions Recorded Albuterol Sulfate [Albuterol HFA 1 - 2 puffs IH Q4-6H PRN 30 Days 10/29/19 Inhaler] #1 inh Azithromycin [Z-Nader 250mg Tab*] 250 mg PO UD DOSE PK #6 tab 10/29/19 Oseltamivir Phosphate [Tamiflu 75 mg PO BID #10 cap 10/29/19 75mg Capsule] predniSONE [Prednisone 20mg 20 mg PO BID 5 Days #10 tab 10/29/19 Tab] Allergies Allergy/AdvReac Type Severity Reaction Status Date / Time No Known Allergies Allergy Verified 10/04/19 08:58 - Worker's Comp Is this a Worker's Comp case?: No [facility] History - Hepatitis A Screen Drug use history?: No High risk sexual behaviors?: No History of sexually transmitted infection?: No Currently employed?: No Childcare worker?: No Do you have indoor plumbing?: Yes Do you have electricity?: Yes Attestation statement:: This patient has been screened for Hepatitis A risk factors. I have reviewed the patient's past medical history: Yes Medical History: Reports:: Asthma Denies:: Cancer, Diabetes Mellitus Type 1, Diabetes Mellitus Type 2, Internal Pacemaker, MRSA, Seizures Other Medical History: Denies: Blood Transfusion Reaction Other Surgeries: Yes: Cholecystectomy, , Dilation and Curettage, Hysterectomy-Total, Tubal Ligation, Other (gallbladder). No: Pacemaker Amputation: No Fractures: No Comment: rectocel. BRYANT BSO - Social History Smoking Status: Never smoker Alcohol Intake: never Alcohol Intake Frequency:: holidays/special occasions only Substance Use Type: denies use Occupational Status: other Housing: house Household Members: children, significant other Family Hx:: No significant family history ROS Obtained: Yes All systems reviewed & no additional complaints - Constitutional Constitu
[2020-10-17 15:56] VITALS: BP 147/81; PULSE 69; RESP 17; TEMP 36.7; O2SAT 98
== END 2020-10-17 16:00 | disposition home or self-care (01) ==
PROVIDERS: Emergency Provider Nurse Practitioner Family; PCP Family Medicine
DX: Z20.822 Contact with and (suspected) exposure to COVID-19 (principal); J45.909 Unspecified asthma, uncomplicated
CPT/HCPCS: 99202; G0463; U0003